=== PATIENT | male | born 1990 | race Hispanic/Latino ===

== ENCOUNTER 2017-06-09 01:16 | Emergency (ER) | payer BC ==
[2017-06-09 01:32] VITALS: BP 127/85; PULSE 130; RESP 16; TEMP 98; O2SAT 97
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
== END 2017-06-09 03:50 | disposition home or self-care (01) ==
LOC: EDBD 01:16 → H.ER 01:16
DX: S01.01XA Laceration without foreign body of scalp, initial encounter (principal); S09.90XA Unspecified injury of head, initial encounter; Y04.2XXA Assault by strike against or bumped into by another person, initial encounter